=== PATIENT | female | born 1990 | race Caucasian/White ===

== ENCOUNTER 2017-12-23 12:09 | Emergency (ER) | payer MEDICAID ==
[2017-12-23 12:18] VITALS: BP 107/74
[2017-12-23] MEDS ORDERED: Cephalexin 500 MG Cap PO ONE (12:50)
[2017-12-23] MEDS ORDERED: Bacitracin Oint 1 GM U/D Packet TOP ONE (12:50)
--- NOTE | 2017-12-23 12:52 | CR ---
Clinical history: 27-year-old female right knee pain (increased warmth and mild erythema). No known t rauma. Interpretation: AP, lateral and sunrise views of the right knee confirm some apparent mild peripatell ar soft tissue swelling. Clinical? No underlying foreign body or air in the subcutaneous tissues. No suprapatellar bursal effusion. Homogeneous normal bone density. No pathologic skeletal lesion, right knee fracture or dislocation.
--- NOTE | 2017-12-23 13:04 | EDM.PDOC ---
Scribed by Arianna Rodriguez 12/23/17 [id number] for Theo Argueta MD ED HPI GENERAL MEDICAL PROBLEM - General Chief Complaint: Lower Extremity Injury/Pain Stated Complaint: RT LEG, SURG 10/06, ? INFECTION Time Seen by Provider: 12/23/17 12:14 Source of Information: Reports: Patient, RN, RN Notes Reviewed History Limitations: Reports: No Limitations - History of Present Illness INITIAL COMMENTS - FREE TEXT/NARRATIVE: Patient presents to ER with complaint of right knee pain with joint redness and increased warmth. Patient feels that it is swollen. Symptoms began about 3 days ago. She fell on it yesterday. Denies fevers or chills. Patient had ORIF of the right ankle at [facility] in [place] in September 2017. She is still on crutches and CAM walker boot. Patient states that she ran out of Hydrocodone and Valium 3 days ago. Onset: Gradual Duration: Getting Worse Location: Reports: Lower Extremity, Right Quality: Reports: Ache Severity: Severe Improves with: Reports: None Worsens with: Reports: None Associated Symptoms: Reports: No Other Symptoms Right Knee Pain Score (Numeric/FACES): 7 - Related Data Allergies Allergy/AdvReac Type Severity Reaction Status Date / Time No Known Allergies Allergy Verified 12/23/17 12:14 Home Meds: Home Meds Ibuprofen [IJD: Ibuprofen] 600 mg PO Q6HR PRN #40 tablet 01/13/16 [Rx] PARoxetine [Paxil] 10 mg PO DAILY 12/23/17 [History] clonazePAM [Klonopin] 1 mg PO TID 12/23/17 [History] traZODone HCl [Trazodone HCl] 100 mg PO BEDTIME 12/23/17 [History] Past Medical History [employer]DER History: Reports: - Past Surgical History HEENT Surgical History: Reports: Tonsillectomy Social & Family History - Caffeine Use Caffeine Use: Reports: None Review of Systems - Review of Systems Review Of Systems: ROS reveals no pertinent complaints other than HPI. ED EXAM, GENERAL - Physical Exam Exam: See Below Exam Limited By: No Limitations General Appearance: Alert, WD/WN, No Apparent Distress Head: Atraumatic, Normocephalic Respiratory/Chest: No Respiratory Distress, Lungs Clear, Normal Breath Sounds, No Accessory Muscle Use, Chest Non-Tender Cardiovascular: Regular Rate, Rhythm Extremities: No Pedal Edema, Normal Capillary Refill, Joint Swelling (Right knee with mild swelling, generalized tenderness, increased warmth and mild/ faint erythema. Anterior knee has a small superficial abrasion.Right knee range of motion is decreased due to pain. ), Other (Right ankle with well healed surgical incisions, no swelling, erythema or increased warmth. ) Neurological: Alert, Oriented, No Motor/Sensory Deficits Course - Vital Signs Last Recorded V/S: Last Vital Signs Temp 37.3 C 12/23/17 12:17 Pulse 99 12/23/17 12:17 Resp 16 12/23/17 12:17 BP 107/74 12/23/17 12:17 Pulse Ox 98 12/23/17 12:17 - Orders/Labs/Meds Labs: Laboratory Tests 12/23/17 12/23/17 Range/Units 12:30 12:30 WBC 10.4 H (5.0-10.0) 10^3/uL RBC 4.27 (4.2-5.4) 10^6/uL Hgb 12.6 D (12.0-16.0) g/dL Hct 38.0 (37.0-47.0) % MCV 89.0 (80-100) fL MCH 29.5 (27.0-34.0) pg MCHC 33.2 (33.0-35.0) g/dL Plt Count 190 (150-450) 10^3/uL Neut % (Auto) 71.8 (42.2-75.2) % Lymph % (Auto) 18.7 L (20.5-50.1) % [facility] % (Auto) 5.9 (2-8) % Eos % (Auto) 3.5 H (1.0-3.0) % Baso % (Auto) 0.1 (0.0-1.0) % C-Reactive Protein 0.6 (0.0-1.3) mg/dL Meds: Medications Discontinued Medications Generic Name Dose Route Start Last Admin Trade Name Freq PRN Reason Stop Dose Admin Bacitracin 1 dose 12/23/17 12:50 12/23/17 12:57 Bacitracin Oint 1 Gm TOP 12/23/17 12:51 1 dose ONETIME ONE Administration Cephalexin 500 mg 12/23/17 12:50 12/23/17 12:57 Keflex PO 12/23/17 12:51 500 mg ONETIME ONE Administration - Radiology Interpretation Free Text/Narrative:: Right knee x-ray: No acute fractures. See rad report. - Re-Assessments/Exams Free Text/Narrative Re-Assessment/Exam: 12/23/17 13:00 No elevation of WBC or CRP. Exam and findings suggestive of early or mild cellulitis. No joint effusion or bursa inflammation to suggest serious bacterial infection of the joint or bursa. Free Text/Narrative Re-Assessment/Exam: 12/23/17 13:03 Pt requesting pain medication. 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 Departure - Departure Time of Disposition: 12:56 Disposition: Home, Self-Care 01 Condition: Good Clinical Impression: Abrasion, right knee, initial encounter, Cellulitis of right knee - Discharge Information Instructions: Cellulitis, Adult, [id number] Forms: ED Department Discharge Additional Instructions: RX: Cephalexin 500mg. RX: Bactroban ointment 2%. Rest, ice and elevate right knee. Continue use of crutches. Follow up in clinic in Monday with your orthopedist or primary doctor. I have read and agree with the documentation that has been completed regarding this visit. By signing this record, I attest that the documentation was completed in my physical presence and is an accurate record of the encounter.
== END 2017-12-23 13:11 | disposition home or self-care (01) ==
LOC: DL.ED 12:09
DX: S80.211A Abrasion, right knee, initial encounter (principal); L03.115 Cellulitis of right lower limb; W19.XXXA Unspecified fall, initial encounter
CPT/HCPCS: 36415; 73562; 85025; 86140; 99284; A9270